=== PATIENT | female | born 1970 | race Caucasian/White ===

== ENCOUNTER 2019-05-21 12:36 | Emergency (ER) | payer OTHER, SELFPAY ==
--- NOTE | ~2019-05-21 | CT_ITS ---
EXAMINATION: CT abdomen pelvis wo con DATE: 05/21/2019 14:37 INDICATION: Abdominal pain TECHNIQUE: Computed tomography (CT) of the abdomen and pelvis was performed without intravenous contr ast. The dose-length product (DLP) was 1102.35 mGy-cm. Automated exposure control and iterative recon struction technique were employed. COMPARISON: 09/11/2018 FINDINGS: The lung bases are clear. The heart size is normal. There is a small sliding hiatal hernia. The liver, spleen, pancreas, gallbladder, and adrenal glands are normal. The kidneys are unremarkabl e. There is calcified atherosclerosis of the aorta and many of the other arteries. No pathologically enlarged abdominal or pelvic lymph nodes are identified. There is no free intraperitoneal gas or evid ence of bowel obstruction. The appendix is normal. There are multiple phleboliths of the pelvis. Ther e is a stable cyst of the right ovary. IMPRESSION: 1. No CT correlate for the patient's symptoms. Reviewed, dictated and finalized at location A.
[2019-05-21] MEDS: SODIUM CHLORIDE 0.9% IV 1,000 ML 999 ML IV CONT (12:51)
[2019-05-21] MEDS: ONDANSETRON INJ 4 MG/2 ML VIAL 8 MG IV PUSH (12:52)
[2019-05-21 12:53] VITALS: BP 179/99; PULSE 63; RESP 26; TEMP 36.6; O2SAT 100
[2019-05-21 13:07] LABS: Basophils Absolute Auto 0.03 K/mm3 (0.00-0.10); Basophils Percent Auto 0.2 % (0.0-1.0); Hematocrit 41.3 % (35.0-49.0); Hemoglobin 14.1 g/dL (12.0-15.0); Immature Granulocyte Absolute 0.12 K/mm3 (0.00-0.00); Immature Granulocyte Percent A 0.9 % (0.0-0.0); Lymphocytes Absolute Auto 1.57 K/mm3 (1.10-4.50); Mean Corpuscular HGB Conc 34.1 g/dL (32.0-36.0); Mean Corpuscular Volume 93.7 fL (78.0-102.0); Mean Platelet Volume 11.8 fl (9.2-11.8); Monocytes Absolute Auto 0.46 K/mm3 (0.10-0.90); Monocytes Percent Auto 3.5 % (2.0-11.0); Neutrophils Absolute Auto 10.9 K/mm3 (1.7-7.2); Neutrophils Percent Auto 83.4 % (50.0-70.0); Platelet Count Result 212 K/mm3 (150-420); Red Blood Count 4.41 M/mm3 (4.20-5.40); White Blood Count 13.1 K/mm3 (4.8-10.8)
[2019-05-21 13:17] LABS: Add Urine Microscopic? YES; Appearance Urine Clear (Clear); Bilirubin Urine Negative (Negative); Blood Urine Negative (Negative); Color Urine Yellow (Yellow); Glucose Urine UA Negative (Negative); Ketones Urine 3+ (Negative); Leukocyte Esterase Ur Negative LEU/UL (Negative); Nitrate Urine Negative (Negative); Protein Urine 2+ (Negative); Specific Grav Ur 1.015 (1.010-1.020); Urobilinogen Urine 0.2 mg/dL (0.2-1.0); pH Urine 8.5 (5.0-8.0)
[2019-05-21] MEDS: METOCLOPRAMIDE HCL INJ 10 MG/2 ML VIAL (13:20)
[2019-05-21 13:23] LABS: Alanine Aminotransferase 19 U/L (14-59); Albumin Level 4.2 g/dL (3.4-5.0); Alkaline Phosphatase 118 U/L (46-116); Anion Gap 20.4 mmol/L (7-16); Aspartate Amino Transferase 17 U/L (15-37); Bilirubin,Total 0.5 mg/dL (0.00-1.00); Blood Urea Nitrogen 12 mg/dL (7-18); Calcium 9.3 mg/dL (8.5-10.1); Carbon Dioxide 25 mmol/L (21-32); Chloride 103 mmol/L (98-108); Estimated Glomerular Filt Rate > 60; Glucose 207 mg/dL (70-99); Lipase 252 U/L (73-393); Osmolality Calculated 305 mOsm/kg (285-295); Potassium 3.4 mmol/L (3.5-5.1); Sodium 145 mmol/L (136-145); Total Protein 7.5 g/dL (6.4-8.2)
[2019-05-21 13:24] LABS: RBC Urine 0-2 /hpf (0-2); Squamous Epithelial Cell Urine Few /hpf (Few); WBC Urine 0-3 /hpf (0-3)
[2019-05-21 13:25] LABS: Bacteria Urine 1+ /hpf; Mucus Urine Moderate /lpf
[2019-05-21 13:32] LABS: Amphetamine Screen Urine Negative (Negative); Barbiturate Screen Urine Negative (Negative); Benzodiazepines Screen Urine Negative (Negative); Cannabinoid Screen Urine Positive (Negative); Cocaine Screen Urine Negative (Negative); Methadone Screen Urine Negative (Negative); Opiate Screen Urine Negative (Negative); Phencyclidine Screen Urine Negative (Negative)
[2019-05-21 14:00] LABS: Amylase 62 U/L (25-115)
--- NOTE | 2019-05-21 14:00 | PC.NURSE ---
Care of pt assumed at this time.
[2019-05-21] MEDS: HYDROMORPHONE HCL 2 MG/ML VIAL 1 MG IV PUSH (14:08)
[2019-05-21 14:09] VITALS: BP 173/94; PULSE 64; RESP 18; O2SAT 100
--- NOTE | 2019-05-21 14:09 | ED.NAVMDI ---
HPI - Nausea/Vomiting/Diarrhea General Chief complaint: Nausea/Vomiting/Diarrhea Stated complaint: Ambulance Time Seen by Provider: 05/21/19 12:58 Source: patient, EMS and RN notes reviewed Limitations: no limitations History of Present Illness Onset (ago): hour(s) (4) Description of vomiting: food contents Description of diarrhea: lose Associated nausea: Yes Associated abdominal pain: Yes Location of pain: epigastric Radiation: RUQ Pain consistency: constant Severity: moderate Quality: cramping, stabbing and sharp Exacerbating factors: eating Relieving factors: none Related Data Home Medications Medication Instructions Recorded Confirmed amoxicillin-pot clavulanate 1 tablet PO Q12H 05/21/19 05/21/19 [Augmentin] aspirin [Adult Low Dose Aspirin] 81 mg PO DAILY 05/21/19 05/21/19 famotidine 20 mg PO DAILY 05/21/19 05/21/19 fluoxetine 40 mg PO DAILY 05/21/19 05/21/19 furosemide 40 mg PO DAILY 05/21/19 05/21/19 gabapentin 800 mg PO TID 05/21/19 05/21/19 magnesium 500 mg PO DAILY 05/21/19 05/21/19 metoclopramide HCl 10 mg PO Q6H PRN 05/21/19 05/21/19 metoprolol tartrate 25 mg PO DAILY 05/21/19 05/21/19 pravastatin 40 mg PO DAILY 05/21/19 05/21/19 sucralfate 1 g PO QID 05/21/19 05/21/19 venlafaxine 75 mg PO DAILY 05/21/19 05/21/19 Allergies Allergy/AdvReac Type Severity Reaction Status Date / Time IV contrast Allergy Difficulty Uncoded 05/21/19 14:17 Breathing Review of Systems Constitutional: Constitutional: Reports chills and Denies fever(s) Eyes: Eyes: Reports no additional eye complaints ENT: Reports system reviewed and no additional complaints, except as documented Cardiovascular: Cardiovascular: Reports no additional cardiovascular complaints Respiratory: Respiratory: Reports no additional respiratory complaints Gastrointestinal: Gastrointestinal: Denies constipation and Denies heartburn Genitourinary: Genitourinary: Denies nocturia, Denies dysuria and Denies flank pain Musculoskeletal: Musculoskeletal: Reports no additional musculoskeletal complaints Neurologic: Reports system reviewed and no additional complaints, except as documented Psychiatric: Psychiatric: Reports no additional psychiatric complaints Endocrine: Endocrine: Reports no additional endocrine complaints Hematologic/Lymphatic: Hematologic/Lymphatic: Reports no additional hematologic/lymphatic complaints Allergic/Immunologic: Allergic/Immunologic: Reports no additional allergic/immunologic complaints [facility] Past Medical History Medical History (Updated 05/21/19 @ 15:13 by Alex Stovall MD) Depression GERD (gastroesophageal reflux disease) Hypercholesterolemia Hypertension Mitral valve prolapse Type 2 diabetes mellitus Surgical History Surgical History (Updated 05/21/19 @ 14:25 by Alex Stovall MD) H/O hysterectomy with unilateral oophorectomy Social History Social History (Updated 05/21/19 @ 14:24 by Alex Stovall MD) Smoking status: Former smoker Alcohol intake: current Alcohol use details: Occasional Substance use: current Substance use type: marijuana Exam Narrative: Exam Narrative: Female nurse in room during examination. Const: General: healthy appearing and no acute distress Nutritional Appearance: obese centrally obese Orientation/consciousness: patient oriented x3 HENMT: Head: normal to inspection Ears: external ears normal General nose exam: Normal external nose present Face and sinus: normal facial exam Mouth: Yes moist mucous membranes Eyes: Pupils: Equal, round and reactive pupils present EOM: EOMs intact bilaterally Neck: Neck: normal visual inspection Resp: Effort & Inspection: normal respiratory effort Auscultation: clear to auscultation bilaterally Cardio: Rate: regular rate Rhythm: regular rhythm GI: Inspection: normal to inspection and obesity GI Palp: Yes Soft to palpation, Yes Tenderness to palpation present (GI) (Moderate RUQ Pos Shipley's sign)
--- NOTE | 2019-05-21 14:10 | PC.NURSE ---
Pt found trying to climb off end of stretcher. Instructed to reposition herself and remain on gurney. Pt moaning and very restless. Within 30-60 seconds of administering IV Dilaudid 1mg as ordered, pt states thank you and is now resting quietly on gurney. Will continue to monitor.
--- NOTE | 2019-05-21 14:40 | PC.NURSE ---
Return from ct scan. Resting quietly. Appears comfortable. Pt states she has a hx of ulcers and typically does not consume alcohol however pt states she had a few alcoholic beverages last night.
[2019-05-21 14:59] VITALS: BP 139/68; PULSE 70; RESP 18; O2SAT 98
--- NOTE | 2019-05-21 15:06 | PC.NURSE ---
Dr Stovall at bedside talking with pt re: plan of care.
== END 2019-05-21 15:20 | disposition home or self-care (01) ==
PROVIDERS: Emergency Provider Emergency Medicine
DX: K52.9 Noninfective gastroenteritis and colitis, unspecified (principal); K80.50 Calculus of bile duct without cholangitis or cholecystitis without obstruction
CPT/HCPCS: 36415; 74176; 80053; 80307; 81001; 82150; 83690; 85025; 86140; 96361; 96374; 96375; 99282; 99284; J1170; J2405; J2765; J7030

== ENCOUNTER 2019-08-06 20:48 | Emergency (ER) | payer MEDICARE, MEDICAID, SELFPAY ==
--- NOTE | 2019-08-06 20:57 | ED.SKABFB ---
HPI - Skin/Abscess/Foreign Bdy General Chief complaint: Skin/Abscess/Foreign Body Stated complaint: abcess on breast Time Seen by Provider: 08/06/19 21:04 Source: patient Mode of arrival: ambulatory Limitations: no limitations History of Present Illness HPI narrative: 49-year-old woman with a history of type 2 diabetes and history of skin abscesses in her groin comes in today complaining of too painful lesions on her right breast and 1 resolving lesion on her left breast. She states they started about 1 week ago. She has had no fever, vomiting. She states she feels nauseated at times. MD complaint: abscess/boil Onset (ago): week(s) (1) Severity: moderate Quality: burning and sharp Pain Consistency: constant Relieving factors: none Exacerbating factors: palpation Associated symptoms: nausea Treatments prior to arrival: attempted to drain pus at home Related Data Home Medications Medication Instructions Recorded Confirmed aspirin [Adult Low Dose Aspirin] 81 mg PO DAILY 05/21/19 08/06/19 famotidine 20 mg PO DAILY 05/21/19 08/06/19 fluoxetine 40 mg PO DAILY 05/21/19 08/06/19 furosemide 40 mg PO DAILY 05/21/19 08/06/19 gabapentin 800 mg PO TID 05/21/19 08/06/19 magnesium 500 mg PO DAILY 05/21/19 08/06/19 metoclopramide HCl 10 mg PO Q6H PRN 05/21/19 08/06/19 metoprolol tartrate 25 mg PO DAILY 05/21/19 08/06/19 pravastatin 40 mg PO DAILY 05/21/19 08/06/19 sucralfate 1 g PO QID 05/21/19 08/06/19 venlafaxine 75 mg PO DAILY 05/21/19 08/06/19 Allergies Allergy/AdvReac Type Severity Reaction Status Date / Time IV contrast Allergy Difficulty Uncoded 05/21/19 14:17 Breathing Review of Systems Constitutional: Constitutional: Denies chills and Denies fever(s) ENT: Denies dysphagia, Denies nasal congestion and Denies sore throat Cardiovascular: Cardiovascular: Denies chest pain and Denies radiating jaw, neck or arm pain Respiratory: Respiratory: Denies cough and Denies dyspnea Gastrointestinal: Gastrointestinal: Denies diarrhea and Denies vomiting Musculoskeletal: Musculoskeletal: Denies arthralgias and Denies joint swelling Integumentary/Breasts: Skin/Breast: Reports as per HPI, Reports breast pain, Denies pruritus, Reports erythema and Denies rash Neurologic: Denies vertigo, Denies dizziness and Denies syncope Hematologic/Lymphatic: Hematologic/Lymphatic: Denies easy bleeding and Denies easy bruising Allergic/Immunologic: Allergic/Immunologic: Denies lip swelling and Denies wheezing PMFSH Past Medical History Medical History (Updated 08/06/19 @ 21:34 by Joe Hart MD) Depression GERD (gastroesophageal reflux disease) Hypercholesterolemia Hypertension Mitral valve prolapse Type 2 diabetes mellitus Surgical History Surgical History (Updated 08/06/19 @ 21:29 by Joe Hart MD) H/O hysterectomy with unilateral oophorectomy Hx of CABG Social History Social History Smoking status: Former smoker Alcohol intake: current Substance use: current Substance use type: marijuana Exam Const: General: alert Nutritional Appearance: obese Orientation/consciousness: patient oriented x3 Limitations: no limitations Other: mild acute distress HENMT: Mouth: Yes moist mucous membranes Eyes: Conjunctivae: conjunctivae normal Pupils: Equal, round and reactive pupils present Resp: Effort & Inspection: normal respiratory effort and not labored Auscultation: clear to auscultation bilaterally, no rales, no rhonchi and no wheezes Cardio: Rate: regular rate Rhythm: regular rhythm Heart sounds: no murmurs Skin: General skin exam: normal color, no jaundice and no pallor Rashes: no rashes Other: 14 x 10 cm area of erythema on the lower portion of the right breast. The central portion of this erythema there is a 2.5 cm diameter fluctuant tender area. There is no drainage. There is an indurated area approximately 2 cm in diameter i
[2019-08-06 21:06] VITALS: BP 162/87; PULSE 74; RESP 18; TEMP 35.9; O2SAT 97
[2019-08-06] MEDS: ONDANSETRON HCL ODT 4 MG TABLET PO (21:28)
== END 2019-08-06 21:41 | disposition home or self-care (01) ==
PROVIDERS: Emergency Provider Emergency Medicine; PCP Family Medicine
DX: N61.1 Abscess of the breast and nipple (principal)
CPT/HCPCS: 10060; 87070; 87077; 87186; 87205; 99283; A9270